=== PATIENT | female | born 1975 | race Caucasian/White ===

== ENCOUNTER 2023-05-25 06:07 | Day surgery (SDC) | payer OTHER ==
[~2023-05-25] VITALS: Ht 162.6 cm; Wt 173.0 kg
[~2023-05-25 06:07] MED LIST: FOLI1TAB15 PO; LEVE250T4 PO; PREN1TAB22 PO
[2023-05-25] MEDS ORDERED: ALBUTEROL SULFATE 2.5 MG/0.5 ML NEB SOLUTION NEB ONE (06:08)
[2023-05-25] MEDS ORDERED: BENZOCAINE 20% 50 MCG/SPRAY 57 GM TP ONE (06:08)
[2023-05-25] MEDS ORDERED: LIDOCAINE 4% 50 ML SOLUTION TP ONE (06:08)
[2023-05-25] MEDS ORDERED: LIDOCAINE 2% 11 ML JELLY TP ONE (06:08)
[2023-05-25] MEDS ORDERED: SODIUM CHLORIDE 0.9% 1,000 ML IV ONE (07:00)
[2023-05-25] MEDS ORDERED: SODIUM CHLORIDE 0.9% 1,000 ML ONE (07:05)
[2023-05-25] MEDS ORDERED: FLUMAZENIL 0.1 MG/ML 5 ML VIAL IVP ONE (07:29)
[2023-05-25] MEDS ORDERED: EPINEPHrine 1:10,000 [1 MG/10 ML] SYRINGE ONE (07:29)
[2023-05-25] MEDS ORDERED: NALOXONE HCL 0.4 MG/ML VIAL ONE (07:29)
[2023-05-25] MEDS ORDERED: SODIUM TETRADECYL SULFATE 3% 60 MG/2 ML VIAL IVP ONE (07:30)
[2023-05-25] MEDS ORDERED: ATROPINE SULFATE 0.1 MG/ML 10 ML SYRINGE IVP ONE (07:30)
[2023-05-25] MEDS ORDERED: MIDAZOLAM HCL 2 MG/2 ML VIAL ONE (07:30)
[2023-05-25] MEDS ORDERED: DiphenhydrAMINE HCL 50 MG/ML VIAL ONE (07:30)
[2023-05-25] MEDS ORDERED: FentaNYL CITRATE PF 100 MCG/2 ML VIAL ONE (07:31)
[2023-05-25] MEDS ORDERED: FLUO20CA36 PO (08:12)
[2023-05-25] MEDS ORDERED: DIVA500T53 PO (08:12)
[2023-05-25] MEDS ORDERED: CETI-450 PO (08:13)
[2023-05-25] MEDS ORDERED: MONT-35 PO (08:13)
[2023-05-25 09:00] VITALS: PULSE 86; RESP 20; O2SAT 100
[2023-05-25] MEDS ORDERED: MethylPREDNISolone SOD SUCC 125 MG/2 ML VIAL IVP ONE (09:15)
[2023-05-25] MEDS ORDERED: MethylPREDNISolone SOD SUCC 125 MG/2 ML VIAL ONE (09:16)
== END 2023-05-25 11:30 | disposition home or self-care (01) ==
LOC: SURGERY 06:07
PROVIDERS: ATTEND Internal Medicine Critical Care Medicine
DX: J38.4 Edema of larynx (principal); B37.0 Candidal stomatitis; I10 Essential (primary) hypertension; I25.2 Old myocardial infarction; D64.9 Anemia, unspecified; Z79.899 Other long term (current) drug therapy; Z98.890 Other specified postprocedural states
CPT/HCPCS: 31623; 87206; 87101; 87220; 36415; 87070; 88108; 31624; 94640; 71045; 87015; 84703; J3010; J2250; J2930; Q9967; J7030; J0171; J0461; J1200; J2310; J3490; J7613; Z7610